=== PATIENT | female | born 1970 | race Caucasian/White ===

== ENCOUNTER 2019-09-18 13:46 | Emergency (ER) | payer MEDICAID, OTHER ==
[~2019-09-18] VITALS: Ht 172.7 cm; Wt 80.0 kg
[~2019-09-18 13:46] MED LIST: DOXY-135 PO; MUPI22OI TP; NITR100C PO; NITR100C11 PO; ONDA4TAB6 PO; PRED10TA PO
[2019-09-18 13:52] VITALS: BP 140/80
[2019-09-18] MEDS ORDERED: bupivacaine 0.25%/epinephrine 1:200,000 inj (contains preserv. MDV) IJ ONE (14:40)
[2019-09-18] MEDS ORDERED: PENI500T2 PO (14:57)
== END 2019-09-18 15:13 | disposition home or self-care (01) ==
LOC: ER 13:47
DX: K04.7 Periapical abscess without sinus (principal); F12.90 Cannabis use, unspecified, uncomplicated; F15.90 Other stimulant use, unspecified, uncomplicated; Z86.69 Personal history of other diseases of the nervous system and sense organs; Z86.19 Personal history of other infectious and parasitic diseases; Z72.89 Other problems related to lifestyle; Z59.0 Homelessness; Z56.0 Unemployment, unspecified; Z79.899 Other long term (current) drug therapy
CPT/HCPCS: 10060; 99283

== ENCOUNTER 2021-06-15 01:53 | Emergency (ER) | payer MEDICAID, OTHER ==
[~2021-06-15] VITALS: Ht 172.7 cm; Wt 64.5 kg
[2021-06-15 02:02] VITALS: BP 124/74
[2021-06-15] MEDS ORDERED: proparacaine 0.5% ophthalmic drops 15ml RIGHTEYE ONE (02:30)
[2021-06-15] MEDS ORDERED: ERYT1OIN6 RIGHTEYE (04:22)
--- NOTE | 2021-06-15 04:42 | NUR ---
Pt visual acuity after treatment R 20/50, L 20/70
[2021-06-16] MEDS ORDERED: ERYT1OIN6 RIGHTEYE (01:03)
== END 2021-06-15 05:15 | disposition home or self-care (01) ==
LOC: ER 01:53
DX: S05.01XA Injury of conjunctiva and corneal abrasion without foreign body, right eye, initial encounter (principal); H57.11 Ocular pain, right eye; H53.8 Other visual disturbances; F12.90 Cannabis use, unspecified, uncomplicated; F15.90 Other stimulant use, unspecified, uncomplicated; F19.90 Other psychoactive substance use, unspecified, uncomplicated; Z86.69 Personal history of other diseases of the nervous system and sense organs; Z86.19 Personal history of other infectious and parasitic diseases; Z98.51 Tubal ligation status; Z72.89 Other problems related to lifestyle; Z59.00 Homelessness unspecified; Z56.0 Unemployment, unspecified; Z79.2 Long term (current) use of antibiotics; Z79.899 Other long term (current) drug therapy; X58.XXXA Exposure to other specified factors, initial encounter; Y93.89 Activity, other specified; Y92.89 Other specified places as the place of occurrence of the external cause; Y99.8 Other external cause status
CPT/HCPCS: 99283

== ENCOUNTER 2023-09-27 20:36 | Emergency (ER) | payer MEDICAID ==
[~2023-09-27] VITALS: Ht 172.7 cm; Wt 54.5 kg
[~2023-09-27 20:36] MED LIST changes: +ERYT1OIN6 RIGHTEYE
[2023-09-27 20:38] VITALS: BP 169/138; PULSE 93; RESP 16; TEMP 98; O2SAT 95
== END 2023-09-27 22:40 | disposition home or self-care (01) ==
LOC: ER 20:37
DX: S93.401A Sprain of unspecified ligament of right ankle, initial encounter (principal); F12.90 Cannabis use, unspecified, uncomplicated; F15.90 Other stimulant use, unspecified, uncomplicated; F19.90 Other psychoactive substance use, unspecified, uncomplicated; Z56.0 Unemployment, unspecified; Z59.00 Homelessness unspecified; Z79.899 Other long term (current) drug therapy; Z79.2 Long term (current) use of antibiotics; Z79.52 Long term (current) use of systemic steroids; Z98.51 Tubal ligation status; Z72.89 Other problems related to lifestyle; X58.XXXA Exposure to other specified factors, initial encounter; Y93.89 Activity, other specified; Y92.89 Other specified places as the place of occurrence of the external cause; Y99.8 Other external cause status
CPT/HCPCS: 73610; 99283; L4360

== ENCOUNTER 2025-04-06 08:07 | Emergency (ER) | payer MEDICAID ==
[~2025-04-06] VITALS: Ht 172.7 cm; Wt 62.4 kg
[2025-04-06 08:12] VITALS: TEMP 99
--- NOTE | 2025-04-06 08:55 | Physician Documentation ---
History of Present Illness ~ Chief Complaint: Flank Pain Stated Complaint: BACK PAIN Time Seen by MD: 08:25 OK to notify your PCP?: Yes Primary Medical Doctor: none HPI 54 year old female with HCV, SLE came to the ER with cc of left lower back and flank pain foe the past 2 days. Pain started in the left flank, radiating to left upper back and also to the left knee, which she describes as a blanche horse pain, 6/10. she is not even able to move from the bed for the past 2 days, due to pain, and is not drinking water due to the need to go washroom. she stated she had similiar kind of pain when she had ovarian cyst rupture few days ago. On the night before the pain started her dog jumped on her, apart from that, no other trauma or falls denies dysuria, hematuria, kidney stones, fever. she does have lower abd pain, a/w cramps, last bm was 2 days ago. dennies nausea/vomitings didnt use any pain meds at home Medication Reconciliation Allergies: Coded Allergies: No Known Allergies (Unverified , 07/29/10) Scheduled Cefpodoxime Proxetil (Cefpodoxime Proxetil), 1 TAB PO Q12H Doxycycline Hyclate (Doxycycline Hyclate), 1 CAP PO BID Erythromycin Base Opth. Ointment* (Erythromycin Opth. Ointment*), 1 APPLIC RIGHTEYE Q6HWA Mupirocin (Bactroban), 1 APPLIC TP TID Nitrofurantoin Macrocrystal (Nitrofurantoin), 1 CAP PO BID Nitrofurantoin/Nitrofuran Mac (Nitrofurantoin [place]-Mcr 100 Mg), 1 CAP PO BID Prednisone (Prednisone), 1 TAB PO Q12H Scheduled PRN Cyclobenzaprine HCl (Cyclobenzaprine HCl), 1 TAB PO TID PRN PRN for muscle spasms Ondansetron Hcl (Zofran), 1 TABLET PO Q6H PRN for nausea/vomiting Past Medical History Past Medical History: Seizures, Hepatitis C Other Past Medical History: SLE, HVC Past Surgical History: tubal ligation Alcohol Use: Occasionally Drug Use: marijuana, methamphetamine, other Lives with: Spouse Lives In: Homeless Occupation: unemployed Review of Systems All Other Systems at this time: Reviewed and Negative Physical Exam Physical Exam Vital Signs: Temperature: 99.0, Source: Oral, Heart Rate: 89, Respiratory Rate: 12, BP: 120/67, Pulse Oximetry: 100, Weight: 62.400 Oxygen Flow Rate: 0 General Appearance: alert, no apparent distress Respiratory: lungs clear, normal breath sounds Chest: no accessory muscle use Cardiovascular: regular rate, rhythm Cardiovascular S1, S2 heard Gastrointestinal: bowels sounds present Gastrointestinal mild tenderness in the lower abdomen, no guarding, no rigidity Progress Progress Note patient is feeling better after receiving toradol, and iv fluids with reduction in pain Results/Orders Results/Orders Completed Orders - OHLMAYTE WALL MD Hcg, Ur Ql (04/06/25 08:19) Cbc/Diff (04/06/25 08:19) Lipase (04/06/25 08:19) CMP (04/06/25 08:19) Ua W/Microscopic, Cult If Ind (04/06/25 08:21) Vital Signs 04/06/25 04/06/25 04/06/25 04/06/25 08:12 08:52 08:59 09:00 Temp 99.0 Pulse 89 82 Resp 12 11 11 14 B/P (MAP) 120/67 117/81 (93) Pulse Ox 100 98 O2 Flow Rate 0 04/06/25 10:52 Pulse 91 Resp 13 B/P (MAP) 145/91 Pulse Ox 100 Laboratory Tests Test 04/06/25 08:21 04/06/25 08:31 Urine Specimen Description Cln catch midstream Urine Color Yellow Urine Clarity Slightly cloudy Urine pH 6.0 Urine Specific [place] >=1.030 Urine Protein Negative Urine Glucose (UA) Negative Urine Ketones Negative Urine Occult Blood Trace-intact Urine Nitrite Positive H Urine Bilirubin Negative Urine Urobilinogen 1.0 Urine Leukocyte Esterase Trace H Urine RBC 0-2 Urine WBC 20-30 H Urine Squamous Epithelial Cells Many Urine Bacteria 3+ Urine Mucus Moderate Urine Culture Indicated Rejected for culture Volume Urine Centrifuged 10 ml Urine HCG, Qualitative Negative Urine Comment White Blood Count 8.6 Red Blood Count 4.83 Hemoglobin 15.4 Hematocrit 45.2 H Mean Corpuscular Volume 93.7 Mean Corpuscular Hemoglobin 31.8 H Mean Corpuscular Hemoglobin Concent 33.9 Red Cell Distribution Width 13.7 Platelet Count 341 Mean Platelet Volume 8.1 Neutrophils (%) (Auto) 56.7 Lymphocytes (%) (Auto) 31.2 Monocytes (%) (Auto) 9.1 Eosinophils (%) (Auto) 1.9 Basophils (%) (Auto) 1.1 H Neutrophils # (Auto) 4.9 Lymphocytes # (Auto) 2.7 Monocytes # (Auto) 0.8 Eosinophils # (Auto) 0.2 Basophils # (Auto) 0.1 CBC Comment Sodium Level 140 Potassium Level 4.4 Chloride Level 104 Carbon Dioxide Level 31.6 Anion Gap 4 L Blood Urea Nitrogen 8 Creatinine 0.80 Estimated GFR/1.73 m2 75 BUN/Creatinine Ratio 10.0 Glucose Level 108 H Calcium Level 8.9 Total Bilirubin 0.8 Aspartate Amino Transf (AST/SGOT) 102 H Alanine Aminotransferase (ALT/SGPT) 176 H Alkaline Phosphatase 115 Total Protein 8.3 H Albumin 3.8 Globulin 4.5 H Albumin/Globulin Ratio 0.8 L Lipase 31 Chemistry Comments Medical Decision Making Additional information obtaine: old records Findings 54 year old female with HCV, SLE came to the ER with cc of left lower back and flank pain foe the past 2 days. Pain started in the left flank, radiating to left upper back and also to the left knee, which she describes as a blanche horse pain, 6/10. she is not even able to move from the bed for the past 2 days, due to pain, and is not drinking water due to the need to go washroom. she stated she had similiar kind of pain when she had ovarian cyst rupture few days ago. On the night before the pain started her dog jumped on her, apart from that, no other trauma or falls denies dysuria, hematuria, kidney stones, fever. she does have lower abd pain, a /w cramps, last bm was 2 days ago. dennies nausea/vomitings didnt use any pain meds at home DD include- left paraspinal muscle spasm, left flank pain 2/2 nephrolithiasis will give iv toradol and ivf NS blolus, and cbc, cmp, ua and hcg Labs- positive for uti, with no leukocytosis will give 1 mg iv rocephin once Differential Dx:Considerations: Urinary tract infection, Other (lower back strain) Departure Time of Disposition: 09:41 Disposition: 01 HOME / SELF CARE / HOMELESS Impression: Primary Impression: Low back pain Additional Impressions: Paraspinal muscle spasm Acute cyclitis Condition: Improved Discharge Instructions: Urinary Tract Infection, Adult, Lumbosacral Strain Additional Instructions: please keep yourself well hydrated we prescribed you cyclobenzaprine, a muscle relaxant for pain' take tylenol as needed for the pain q6h we also prescribed you antibiotic for UTI F/U with your PCP in a week Referrals: NO PRIMARY CARE PROVIDER (PCP) Prescriptions Cefpodoxime Proxetil (Cefpodoxime Proxetil) 100 Mg Tablet 1 TAB PO Q12H for 7 Days, #14 TAB 0 Refills Prov: AYESHA LAY, RES 04/06/25 Cyclobenzaprine HCl (Cyclobenzaprine HCl) 5 Mg Tablet 1 TAB PO TID PRN PRN for muscle spasms for 5 Days, #15 TAB 0 Refills Prov: AYESHA LAY, RES 04/06/25 Education Educated: Patient Educated regarding: diagnosis, treatment, prognosis, need for follow up Additional Comment 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 I have reviewed the resident's note and I agree with the note in the assessment plan as written. I have supervised all aspects of the patient's care. I have independently examined the patient. The patient's prior hospitalizations were reviewed. The patient's pulse oximetry was interpreted as normal and adequate. Signature Scribe Signature: , Attestation: findings, assessment and plan, dispo d/w AYESHA Ford MD, RES Apr 06, 2025 08:55 MAYTE RIGGS MD Apr 09, 2025 08:14
[2025-04-06 08:56] LABS: MEAN PLATELET VOLUME 8.1 FL (7.4-10.4); RED CELL DISTRIBUTION WIDTH 13.7 % (11.5-14.5)
[2025-04-06 08:58] LABS: LEUKOCYTE ESTERASE ,URINE TRACE (Neg); NITRITES, URINE POSITIVE (Neg); OCCULT BLOOD,URINE TRACE-INTACT (Neg)
[2025-04-06 08:59] LABS: URINE HCG NEGATIVE (NEG)
[2025-04-06] MEDS: normal saline 1000ml 1,000 ML IV ONE (08:59)
[2025-04-06] MEDS: ketorolac trometh 15mg/ml vial 15 MG/ML ML IV ONE (08:59)
[2025-04-06 09:09] LABS: UA COLLECTION TYPE CLN CATCH MIDSTREAM
[2025-04-06 09:12] LABS: SQUAMOUS EPITHELIAL CELL,UR MANY /LPF (FEW)
[2025-04-06 09:13] LABS: MUCUS STRANDS MODERATE /LPF (Neg)
[2025-04-06 09:15] LABS: CREATININE 0.80 MG/DL (0.40-0.90); TOTAL CARBON DIOXIDE 31.6 MMOL/L (24-32); eCRCL 80 ML/MIN; eGFR 75 ML/MIN
[2025-04-06] MEDS ORDERED: CEFP100T7 PO (09:45)
[2025-04-06] MEDS ORDERED: CYCL-920 PO (09:45)
[2025-04-06] MEDS: CefTRIAXone/D5W-Rocephin 1gm 50 ML IV ONE (09:53)
[2025-04-06 10:52] VITALS: BP 145/91; PULSE 91; RESP 13; O2SAT 100
== END 2025-04-06 10:54 | disposition home or self-care (01) ==
LOC: ER 08:08
DX: H20.00 Unspecified acute and subacute iridocyclitis (principal); M54.50 Low back pain, unspecified; M62.830 Muscle spasm of back; F12.90 Cannabis use, unspecified, uncomplicated; F15.90 Other stimulant use, unspecified, uncomplicated; F19.90 Other psychoactive substance use, unspecified, uncomplicated; Z98.51 Tubal ligation status; Z86.19 Personal history of other infectious and parasitic diseases; Z72.89 Other problems related to lifestyle; Z79.899 Other long term (current) drug therapy; Z59.00 Homelessness unspecified; Z56.0 Unemployment, unspecified
CPT/HCPCS: 36415; 80053; 81001; 81025; 83690; 85025; 96361; 96365; 96375; 99284; J0696; J1885; J7030